=== PATIENT | female | born 1965 | race African-American/Black ===

== ENCOUNTER → 2018-12-15 | Outpatient (CLI) | payer OTHER ==
--- NOTE | 2018-12-15 12:34 | KCIC ---
EXAM: Pelvic sonogram. HISTORY: Postmenopausal bleeding. TECHNIQUE: Transabdominal and transvaginal sonographic imaging of the pelvis was performed. COMPARISON: None. FINDINGS: The uterus measures 9.5 x 7.4 x 5.7 cm. There are multiple uterine fibroids, the largest of which measure 3.3 x 3.0 x 2.1 cm within the anterior superior right uterine fundus, 2.0 x 1.8 x 1.8 cm within the anterior uterine fundus, and 3.4 x 2.9 x 2.9 cm within the left posterior uterine fundus. The endometrial stripe measures 7 mm in thickness. The ovaries are obscured. There is no pelvic free fluid. IMPRESSION: 1. Multiple uterine fibroids. 2. Slightly thickened endometrial stripe for the postmenopausal status of the patient. In the setting of postmenopausal bleeding, tissue sampling may be indicated to exclude endometrial pathology. 3. Obscured ovaries. Electronically signed by: Isabel Estevez MD (12/15/2018 12:31 PM) [id number]
== END | disposition home or self-care (01) ==
LOC: KCIC US 10:29
PROVIDERS: ATTEND Family Medicine
DX: D25.9 Leiomyoma of uterus, unspecified (principal)
CPT/HCPCS: 76830; 76856

== ENCOUNTER → 2019-05-03 | Outpatient (CLI) | payer OTHER ==
--- NOTE | 2019-05-03 14:12 | KCIC ---
EXAM: US abdomen limited DATE: 05/03/2019 9:00 AM COMPARISON: None INDICATION: Mass lesion, characterize and localize, palpable abnormality TECHNIQUE: Longitudinal and transverse imaging with intermittent Doppler sampling completed with attention to left lower quadrant posterior lateral soft tissue palpable focus FINDINGS: A 3.7 x 1.5 x 5 cm structure with internal striations is seen, echogenicity is similar to that of subcutaneous fat this may represent unencapsulated lipoma. IMPRESSION: 5 cm structure with similar echogenicity to the subcutaneous fat may represent a lipoma. However if there is interval enlargement further evaluation with MRI is recommended to exclude other soft tissue mass. Electronically signed by: Ruiz Saldana MD (05/03/2019 2:09 PM) [facility] [place]
== END | disposition home or self-care (01) ==
LOC: KCIC US 09:08
PROVIDERS: ATTEND Family Medicine
DX: R19.02 Left upper quadrant abdominal swelling, mass and lump (principal)
CPT/HCPCS: 76705